=== PATIENT | male | born 1955 ===

== ENCOUNTER 2022-10-06 19:43 | Emergency (ER) | payer OTHER, BC ==
[2022-10-06] MEDS ORDERED: Sodium Chloride 0.9% 2.5 ML Syringe FLUSH PRN (19:49)
[2022-10-06] MEDS ORDERED: Sodium Chloride 0.9% 10 ML Syringe FLUSH PRN (19:49)
[2022-10-06] MEDS ORDERED: Lidocaine 1% with EPINEPHrine 1:100,000 20 ML MDV INJECT ONE (19:51)
[2022-10-06] MEDS ORDERED: Lidocaine 1% with EPINEPHrine 1:100,000 10 ML MDV INJECT ONE (19:57)
[2022-10-06] MEDS ORDERED: Iopamidol 755 MG/ML 500 ML Multipack Bottle IVPUSH ONE (20:11)
[2022-10-06 20:50] LABS: CARBON DIOXIDE,CO2 24.9 mmol/L (21.0-32.0)
[2022-10-06] MEDS ORDERED: Bacitracin Oint 28.35 GM Tube ONE (21:12)
[2022-10-06] MEDS ORDERED: Morphine 2 MG/ML SYRINGE IVPUSH ONE (21:16)
[2022-10-06] MEDS ORDERED: Bacitracin Oint 1 GM U/D Packet TOP ONE (21:32)
== END 2022-10-06 23:47 | disposition home or self-care (01) ==
LOC: MW.ED 19:43
DX: S43.102A Unspecified dislocation of left acromioclavicular joint, initial encounter (principal); S01.01XA Laceration without foreign body of scalp, initial encounter; V84.5XXA Driver of special agricultural vehicle injured in nontraffic accident, initial encounter
CPT/HCPCS: 12002; 36415; 70450; 70450-26; 71260; 71260-26; 72125; 72125-26; 73000-26-LT; 73000-LT; 73030-26-LT; 73030-LT; 74177; 74177-26; 80053; 81003; 85025; 85610; 96374; 99284; 99285-25; A9270-GY; J2270; J3490; Q9967